=== PATIENT | male | born 1950 | race Caucasian/White ===

== ENCOUNTER → 2017-04-04 | Outpatient (CLI) | payer OTHER, MEDICARE ==
[~2017-04-04] MED LIST: ASPCH81X PO; CIPR-255 PO; FLUT0.0529 NAE; LEVO88TA PO; MULT-513 PO; SAW PALMETTO PO; SIMV20TA2 PO; SULF-183 PO; VITA400C15 PO
[2017-04-04 09:42] LABS: ALT/SGPT 39 U/L (12-78); AST/SGOT 34 U/L (15-37)
[2017-04-04 09:53] LABS: BLOOD UREA NITROGEN 22 mg/dl (7-18); BUN/CREATININE RATIO 17.2 (10-20); CALCIUM 8.3 mg/dl (8.5-10.1); CARBON DIOXIDE 31 mmol/L (21-32); CHLORIDE 110 mmol/L (98-107); GLUCOSE 84 mg/dl (70-99); POTASSIUM 4.5 mmol/L (3.5-5.1); SODIUM 144 mmol/L (136-145)
[2017-04-04 10:04] LABS: CHOLESTEROL 133 mg/dl (0-200); CHOLESTEROL/HDL RATIO 2.7; HDL CHOLESTEROL 49 mg/dl; LDL CHOLESTEROL CALCULATED 64 mg/dl; TRIGLYCERIDES 101 mg/dl (0-150); VERY LOW DENSITY LIPOPROT CALC 20 mg/dl
== END | disposition home or self-care (01) ==
LOC: C.LAB 08:10
PROVIDERS: ATTEND Internal Medicine
DX: E78.5 Hyperlipidemia, unspecified (principal); R68.82 Decreased libido; E03.9 Hypothyroidism, unspecified

== ENCOUNTER → 2017-05-17 | Outpatient (CLI) | payer OTHER, MEDICARE ==
--- NOTE | 2017-05-27 08:08 | CODING QUERY MEDICAL NECESSITY ---
CQSUPPORTING DIAGNOSIS NEEDED A supporting diagnosis is required for the test/procedure performed on this patient in order for us to be reimbursed by the patient's insurance. Please provide a supporting diagnosis for the following test/procedure listed below next to the test name along with your signature. *If there is no additional diagnosis for this patient that would support the following test/procedure please document that below next to the test/procedure. Test(s)/Procedure(s) that require a supporting diagnosis: DOS 05/17/17 PROSTATE SPECIFIC TEST Provider Signature: Date: Thank you Nicole Hernandez [employer] Information Management Once completed, please kindly fax back to [phone] For questions please call [phone]
== END | disposition home or self-care (01) ==
LOC: C.LAB 07:40
PROVIDERS: ATTEND Urology
DX: L72.0 Epidermal cyst (principal); R97.20 Elevated prostate specific antigen [PSA]; N40.1 Benign prostatic hyperplasia with lower urinary tract symptoms

== ENCOUNTER → 2017-10-13 | Outpatient (CLI) | payer OTHER, MEDICARE ==
[2017-10-13 11:07] LABS: ALT/SGPT 40 U/L (12-78); AST/SGOT 35 U/L (15-37); BLOOD UREA NITROGEN 18 mg/dl (7-18); BUN/CREATININE RATIO 16.4 (10-20); CALCIUM 8.7 mg/dl (8.5-10.1); CARBON DIOXIDE 28 mmol/L (21-32); CHLORIDE 105 mmol/L (98-107); CREATININE 1.12 mg/dl (0.60-1.40); GLUCOSE 84 mg/dl (70-99); SODIUM 140 mmol/L (136-145)
[2017-10-13 11:17] LABS: CHOLESTEROL 132 mg/dl (0-200); CHOLESTEROL/HDL RATIO 2.1; HDL CHOLESTEROL 62 mg/dl; LDL CHOLESTEROL CALCULATED 49 mg/dl; TRIGLYCERIDES 104 mg/dl (0-150); VERY LOW DENSITY LIPOPROT CALC 21 mg/dl
== END | disposition home or self-care (01) ==
LOC: C.LAB 09:20
PROVIDERS: ATTEND Internal Medicine
DX: E78.5 Hyperlipidemia, unspecified (principal); E03.9 Hypothyroidism, unspecified

== ENCOUNTER 2017-12-23 14:36 | Emergency (ER) | payer OTHER, MEDICARE ==
[~2017-12-23] VITALS: Ht 177.8 cm; Wt 74.5 kg
[2017-12-23 14:39] VITALS: TEMP 36.4
[2017-12-23 15:30] VITALS: O2SAT 97; Ht 177.8 cm; Wt 74.5 kg
--- NOTE | 2017-12-23 15:30 | DIAGNOSTIC IMAGING REPORT ---
CHEST ONE VIEW PORTABLE CLINICAL HISTORY: 67 years-old Male presenting with EVALUATE RESPIRATORY DISTRESS.DYSPNEA. TECHNIQUE: Portable upright AP view of the chest was obtained. COMPARISON: None. FINDINGS: Cardiomediastinal silhouette normal. Lungs and pleural spaces clear. Osseous structures normal. Upper abdomen normal. IMPRESSION: 1. No acute cardiopulmonary disease. Electronically signed by: Cheng Walls M.D. 12/23/2017 3:29 PM Dictated Date/Time: 12/23/2017 3:28 PM
[2017-12-23 15:51] LABS: BASO % 0.6 %; BASO ABS # 0.04 K/uL (0-0.2); EOS % 4.5 %; EOS ABS # 0.31 K/uL (0-0.5); HEMATOCRIT 42.1 % (42-52); HEMOGLOBIN 14.3 g/dL (14.0-18.0); IG# 0.02 K/uL (0.00-0.02); LYMPH % 15.2 %; LYMPH ABS # 1.04 K/uL (1.2-3.4); MEAN CELL VOLUME 94.4 fL (80-100); MEAN CORPUSCULAR HEMOGLOBIN 32.1 pg (25-34); MEAN PLATELET VOLUME 10.6 fL (7.4-10.4); MONO % 6.1 %; MONO ABS # 0.42 K/uL (0.11-0.59); NEUT % 73.3 %; NEUT ABS # 5.02 K/uL (1.4-6.5); PLATELET COUNT 158 K/uL (130-400); RED CELL DISTRIBUTION WIDTH CV 13.1 % (11.5-14.5); RED CELL DISTRIBUTION WIDTH SD 44.7 fL (36.4-46.3); WHITE BLOOD COUNT 6.85 K/uL (4.8-10.8)
[2017-12-23 16:00] LABS: PTT PATIENT 23.5 SECONDS (21.0-31.0)
--- NOTE | 2017-12-23 16:06 | EMERGENCY ROOM VISIT NOTE ---
History Report prepared by Eva: Starr Villa Under the Supervision of: Dr. Stas Calderon D.O. First contact with patient: 15:08 Chief Complaint: CARDIAC ASSESSMENT Stated Complaint: AFIB- SENT Nursing Triage Summary: Pt sent by [facility], was there for cataract surgery and was found to be in a.fib. Denies hx of a.fib. Pt states, "My pulse feels higher than it usually does." Denies sob, cp, dizziness/lightheadedness. History of Present Illness The patient is a 67 year old male who presents to the Emergency Room with complaints of an episode of atrial fibrillation beginning prior to arrival. The patient was at [facility] for cataract surgery when he was found to be in atrial fibrillation. The patient states that now that he is aware he is in atrial fibrillation, he can feel his "heart rate is higher than it is normally". He reports working out relatively regularity. He denies any shortness of breath, chest pain, dizziness, pain or swelling in his legs. The patient states he drinks occasionally but he denies any tobacco use. The patient has a history of BPH. Source of History: patient Onset: prior to arrival Position: other (generalized) Quality: other (a fib) Timing: other (episode) Associated Symptoms: No chest pain, No SOB Review of Systems See HPI for pertinent positives & negatives. A total of 10 systems reviewed and were otherwise negative. Past Medical & Surgical Medical Problems: (1) Enlarged prostate (2) Hernia repair (3) Prostatitis Family History Patient reports no known family medical history. Social History Smoking Status: Never Smoker Alcohol Use: occasionally Marital Status: Housing Status: lives with significant other Occupation Status: employed Current/Historical Medications Scheduled Alfuzosin Hcl (Uroxatral), 1 TAB PO DAILY Finasteride (Proscar), 1 TAB PO DAILY Levothyroxine Sodium (Synthroid), 88 MCG PO DAILY Metoprolol Succ (Toprol Xl) (Toprol-Xl), 25 MG PO DAILY Simvastatin (Zocor), 20 MG PO QPM Allergies Coded Allergies: No Known Allergies (Unverified , 12/23/17) Physical Exam Vital Signs Date Time Temp Pulse Resp B/P (MAP) Pulse Ox O2 Delivery O2 Flow Rate FiO2 12/23/17 17:31 77 20 104/74 98 12/23/17 16:33 60 12/23/17 15:30 97 Room Air 12/23/17 15:30 97 Room Air 12/23/17 14:39 36.4 72 18 127/71 95 Room Air Physical Exam GENERAL: Patient is awake, alert, and in no acute distress. Patient is resting comfortably and showing no signs of anxiety EYES: The conjunctivae are clear. The pupils are round and reactive. EARS, NOSE, MOUTH AND THROAT: The nose is without any evidence of any deformity. Mucous membranes are moist tongue is midline NECK: The neck is nontender and supple. RESPIRATORY: Normal respiratory effort is noted there is no evidence of wheezing rhonchi or rales CARDIOVASCULAR: Irregular rhythm, no definite murmur noted. GASTROINTESTINAL: The abdomen is soft. Bowel sounds are present in all quadrants. Abdomen is nontender MUSCULOSKELETAL/EXTREMITIES: There is no evidence of gross deformity full range of motion is noted in the hips and shoulders SKIN: There is no obvious evidence of any rash. There are no petechiae, pallor or cyanosis noted. NEUROLOGIC: Patient is awake alert and oriented x3 Medical Decision & Procedures ER Provider Diagnostic Interpretation: Radiology results as stated below per my review and radiologist interpretation: CHEST ONE VIEW PORTABLE FINDINGS: Cardiomediastinal silhouette normal. Lungs and pleural spaces clear. Osseous structures normal. Upper abdomen normal. IMPRESSION: 1. No acute cardiopulmonary disease. Electronically signed by: Cheng Walls M.D. Laboratory Results 12/23/17 15:36 Red Blood Count 4.46, Mean Corpuscular Volume 94.4, Mean Corpuscular Hemoglobin 32.1, Mean Corpuscular Hemoglobin Concent 34.0, Mean Platelet Volume 10.6, Neutrophils (%) (Auto) 73.3, Lymphocytes (%) (Auto) 15.2, Monocytes (%) (Auto) 6.1, Eosinophils (%) (Auto) 4.5, Basophils (%) (Auto) 0.6, Neutrophils # (Auto) 5.02, Lymphocytes # (Auto) 1.04, Monocytes # (Auto) 0.42, Eosinophils # (Auto) 0.31, Basophils # (Auto) 0.04 12/23/17 15:36 Test 12/23/17 15:36 White Blood Count 6.85 K/uL (4.8-10.8) Red Blood Count 4.46 M/uL (4.7-6.1) Hemoglobin 14.3 g/dL (14.0-18.0) Hematocrit 42.1 % (42-52) Mean Corpuscular Volume 94.4 fL (80-100) Mean Corpuscular Hemoglobin 32.1 pg (25-34) Mean Corpuscular Hemoglobin Concent 34.0 g/dl (32-36) Platelet Count 158 K/uL (130-400) Mean Platelet Volume 10.6 fL (7.4-10.4) Neutrophils (%) (Auto) 73.3 % Lymphocytes (%) (Auto) 15.2 % Monocytes (%) (Auto) 6.1 % Eosinophils (%) (Auto) 4.5 % Basophils (%) (Auto) 0.6 % Neutrophils # (Auto) 5.02 K/uL (1.4-6.5) Lymphocytes # (Auto) 1.04 K/uL (1.2-3.4) Monocytes # (Auto) 0.42 K/uL (0.11-0.59) Eosinophils # (Auto) 0.31 K/uL (0-0.5) Basophils # (Auto) 0.04 K/uL (0-0.2) RDW Standard Deviation 44.7 fL (36.4-46.3) RDW Coefficient of Variation 13.1 % (11.5-14.5) Immature Granulocyte % (Auto) 0.3 % Immature Granulocyte # (Auto) 0.02 K/uL (0.00-0.02) Prothrombin Time 10.7 SECONDS (9.0-12.0) Prothromb Time International Ratio 1.0 (0.9-1.1) Activated Partial Thromboplast Time 23.5 SECONDS (21.0-31.0) Partial Thromboplastin Ratio 0.9 Anion Gap 4.0 mmol/L (3-11) Est Creatinine Clear Calc Drug Dose 62.4 ml/min Estimated GFR () 73.8 Estimated GFR (Non- 63.7 BUN/Creatinine Ratio 16.2 (10-20) Calcium Level 8.5 mg/dl (8.5-10.1) Magnesium Level 2.2 mg/dl (1.8-2.4) Total Bilirubin 0.6 mg/dl (0.2-1) Aspartate Amino Transf (AST/SGOT) 33 U/L (15-37) Alanine Aminotransferase (ALT/SGPT) 37 U/L (12-78) Alkaline Phosphatase 80 U/L (45-117) Total Creatine Kinase 159 U/L (39-308) Creatine Kinase MB 5.2 ng/ml (0.5-3.6) Creatine Kinase MB Ratio 3.3 (0-3.0) Troponin I < 0.015 ng/ml (0-0.045) Total Protein 6.2 gm/dl (6.4-8.2) Albumin 3.5 gm/dl (3.4-5.0) Globulin 2.7 gm/dl (2.5-4.0) Albumin/Globulin Ratio 1.3 (0.9-2) Thyroid Stimulating Hormone (TSH) 3.040 uIu/ml (0.300-4.500) Laboratory results per my review. Medications Administered Medications (Trade) Dose Ordered Sig/Ellie Route Start Time Stop Time Status Last Admin Dose Admin Metoprolol Succinate (Toprol Xl Tab) 25 mg NOW STAT PO 12/23/17 16:44 12/23/17 16:46 DC 12/23/17 17:25 25 MG ECG Indication: palpitations Rate (beats per minute): 88 Rhythm: atrial fibrillation Findings: ST depression (Inferior), no ectopy Comparison ECG Date: 09/06/11 Change: changes new. EKG interpreted by me. ED Course 1510: The patient was evaluated in room C2B. A complete history and physical examination were performed. 1638: I updated the patient on his test results. 1642: I discussed the patient's case with Dr. Marks-Cardiology. He will follow up with patient as an outpatient. He recommended starting the patient on a beta octavia. 1644: Ordered Metoprolol Succinate 25 mg PO. 1652: I updated the patient on the treatment plan. 1658: Upon reevaluation, the patient is resting comfortably. I discussed the results and treatment plan with him. He verbalized agreement of the treatment plan. The patient was discharged home. Medical Decision Differential diagnosis: Etiologies such as cardiac ischemia, aortic dissection, pulmonary embolism, pneumonia, pneumothorax, musculoskeletal, infections, pericarditis, myocarditis , esophageal rupture, gastrointestinal, as well as others were entertained. CHADVASC score is 1 Nursing notes reviewed. The patient is a 67-year-old male who presented to the emergency department from [facility] for atrial fibrillation. The patient was asymptomatic for the most part but was found to be in atrial fibrillation. He was not found have a rapid ventricular rate. The patient was started on Toprol- XL need emergency department. I discussed the patient's laboratory and radiographic studies with him. I also discussed his CHADVASC score with him. I discussed his case with the on-call [facility] name plate stamping machine operator. I do not feel the patient requires anticoagulation at this time. He was started on a beta octavia. He was encouraged to follow-up with the cardiology group as well as his primary care physician as soon as possible. Otherwise she was encouraged to return to the emergency department immediately if symptoms change worsen or the need arises. Medication Reconcilliation Current Medication List: was personally reviewed by me Blood Pressure Screening Patient's blood pressure: Normal blood pressure Consults Time Called: 1634 Consulting Physician: Dr. Alexandre Returned Call: 1642 I discussed the patient's case with Dr. Alexandre. He will follow up with patient as an outpatient. He recommended starting the patient on a beta octavia. Impression Primary Impression: New onset atrial fibrillation Scribe Attestation The scribe's documentation has been prepared under my direction and personally reviewed by me in its entirety. I confirm that the note above accurately reflects all work, treatment, procedures, and medical decision making performed by me. Departure Information Dispostion Home / Self-Care Prescriptions Metoprolol Succ (Toprol Xl) (Toprol-Xl) 25 Mg Tabcr 25 MG PO DAILY, #30 TAB Prov: Stas Calderon, 12/23/17 Referrals Stas Pitts M.D. (PCP) Forms IMPORTANT VISIT INFORMATION Patient Instructions Atrial Fibrillation, My [facility] Additional Instructions Continue all medications as prescribed. I would recommend starting a baby aspirin every morning. Call your primary care physician as well as the name plate stamping machine operator to schedule follow-up point for further testing. Return to the emergency department immediately if symptoms change worsen or the need arises.
[2017-12-23] MEDS ORDERED: FINA5TAB PO (16:10)
[2017-12-23] MEDS ORDERED: ALFU10TA2 PO (16:10)
[2017-12-23 16:20] LABS: ALBUMIN 3.5 gm/dl (3.4-5.0); ALT/SGPT 37 U/L (12-78); AST/SGOT 33 U/L (15-37); BLOOD UREA NITROGEN 19 mg/dl (7-18); CALCIUM 8.5 mg/dl (8.5-10.1); CARBON DIOXIDE 29 mmol/L (21-32); CREATININE 1.17 mg/dl (0.60-1.40); GLUCOSE 125 mg/dl (70-99); POTASSIUM 4.1 mmol/L (3.5-5.1); SODIUM 140 mmol/L (136-145)
[2017-12-23 16:30] LABS: ALKALINE PHOSPHATASE 80 U/L (45-117); CKMB 5.2 ng/ml (0.5-3.6); TOTAL PROTEIN 6.2 gm/dl (6.4-8.2)
[2017-12-23] MEDS ORDERED: METOPROLOL SUCC 50MG EXT REL TAB PO STA (16:44)
[2017-12-23] MEDS ORDERED: METO25TA3 PO (16:47)
[2017-12-23 17:31] VITALS: BP 104/74; PULSE 77; O2SAT 98
== END 2017-12-23 17:33 | disposition home or self-care (01) ==
LOC: C.EDB 14:37 → C.EDC 17:33
DX: I48.91 Unspecified atrial fibrillation (principal); N40.0 Benign prostatic hyperplasia without lower urinary tract symptoms

== ENCOUNTER → 2018-03-28 | Outpatient (CLI) | payer OTHER, MEDICARE ==
[~2018-03-28] MED LIST changes: +ALFU10TA2 PO; -ASPCH81X PO; -CIPR-255 PO; +FINA5TAB PO; -FLUT0.0529 NAE; +METO25TA3 PO; -MULT-513 PO; -SAW PALMETTO PO; -SULF-183 PO; -VITA400C15 PO
== END | disposition home or self-care (01) ==
LOC: C.LAB 07:55
PROVIDERS: ATTEND Urology
DX: R97.20 Elevated prostate specific antigen [PSA] (principal)

== ENCOUNTER → 2018-07-10 | Outpatient (CLI) | payer OTHER, MEDICARE ==
[~2018-07-10] MED LIST changes: -METO25TA3 PO
--- NOTE | 2018-07-10 16:11 | DIAGNOSTIC IMAGING REPORT ---
KUB CLINICAL HISTORY: E78.5 [id number] COMPARISON STUDY: CT scan dated 04/12/2016 FINDINGS: There is no pathologic bowel dilatation. The renal shadows are largely obscured overlying bowel gas and fecal material. No definite calculi are visualized. There is a tiny right pelvic basin calcifications statistically representing a phlebolith. IMPRESSION: No evidence of pathologic bowel dilatation. Electronically signed by: Suraj Price M.D. 07/10/2018 4:09 PM Dictated Date/Time: 07/10/2018 4:08 PM
[2018-07-10 17:15] LABS: BASO % 0.7 %; BASO ABS # 0.06 K/uL (0-0.2); EOS ABS # 0.45 K/uL (0-0.5); HEMATOCRIT 38.5 % (42-52); HEMOGLOBIN 12.8 g/dL (14.0-18.0); IG# 0.02 K/uL (0.00-0.02); LYMPH % 12.5 %; LYMPH ABS # 1.13 K/uL (1.2-3.4); MEAN CELL VOLUME 94.6 fL (80-100); MEAN CORPUSCULAR HEMOGLOBIN 31.4 pg (25-34); MEAN CORPUSCULAR HGB CONC 33.2 g/dl (32-36); MEAN PLATELET VOLUME 11.7 fL (7.4-10.4); MONO % 9.9 %; NEUT % 71.7 %; NEUT ABS # 6.51 K/uL (1.4-6.5); PLATELET COUNT 167 K/uL (130-400); RED CELL DISTRIBUTION WIDTH CV 12.7 % (11.5-14.5); RED CELL DISTRIBUTION WIDTH SD 43.7 fL (36.4-46.3); WHITE BLOOD COUNT 9.07 K/uL (4.8-10.8)
[2018-07-10 18:00] LABS: ALBUMIN 3.4 gm/dl (3.4-5.0); ALKALINE PHOSPHATASE 87 U/L (45-117); ALT/SGPT 32 U/L (12-78); AST/SGOT 30 U/L (15-37); BLOOD UREA NITROGEN 21 mg/dl (7-18); CALCIUM 8.4 mg/dl (8.5-10.1); CARBON DIOXIDE 27 mmol/L (21-32); CHOLESTEROL 104 mg/dl (0-200); CREATININE 1.11 mg/dl (0.60-1.40); GLUCOSE 80 mg/dl (70-99); LDL CHOLESTEROL CALCULATED 41 mg/dl; POTASSIUM 3.9 mmol/L (3.5-5.1); SODIUM 141 mmol/L (136-145); TOTAL PROTEIN 6.6 gm/dl (6.4-8.2)
== END | disposition home or self-care (01) ==
LOC: C.RAD1850 15:55
PROVIDERS: ATTEND Internal Medicine
DX: R14.0 Abdominal distension (gaseous) (principal); R10.84 Generalized abdominal pain; E03.9 Hypothyroidism, unspecified; E78.5 Hyperlipidemia, unspecified

== ENCOUNTER 2024-09-14 08:22 | Observation (INO) ==
--- NOTE | 2024-09-06 15:11 | Anesthesiology Consultation ---
Date of Service September 06, 2024 Assessment & Plan (1) Encounter for pre-operative examination: - Infectious disease screening: Per assessment on 09/06/24- No known recent infectious disease contacts or current infectious disease symptoms. - Cardiology visit (11/24/23): "Paroxysmal atrial fibrillation.. He has a few episodes of year of what is likely atrial fibrillation. His does record some high heart rates at times, but this may symptoms the due to the way in which the heart rate is monitored. While he had some atrial fibrillation in the morning 1 day his heart rate was only in the 70s to 80s. No symptoms. Still infrequent episodes overall. We did discuss anticoagulation and based on his age, he would be in a category of patients advised to undergo systemic anticoagulation starting this may. I think it would be prudent to start anticoagulation at this time. I recommended starting Xarelto. He is going to discuss this with his and let me know his decision.. he has a resting bradycardia. No symptoms. Still elevated heart rates with exercise. Still exercising vigorously.. Follow Up: 1 Year" > Per 06/2024 [facility] PCP wellness visit, risks/benefits of anticoagulation reviewed with patient and patient has decided to not start anticoagulation at this time. Cardiology aware. Case reviewed with Dr. Richards. Patient okay to proceed without further cardiac evaluation and/or testing from his perspective. Chart Review Chart Review: Acceptable Risk for Surgery (pending evaluation DOS) and Patient NOT seen in Pre Admission Testing History Surgery Operation Date: 09/14/24 07:15 Proposed Procedures p TURP (Transurethral Resection of Prostate) - Roe Cortez MD Height/Weight Height: 5 ft 10 in Weight: 65.771 kg Allergies Allergy/AdvReac Type Severity Reaction Status Date / Time adhesive Allergy Mild skin Verified 09/06/24 13:41 irritation latex Allergy Mild Rash Verified 09/06/24 13:41 ragweed pollen Allergy Mild runny nose Verified 09/06/24 13:41 and cough No Known Drug Allergies Allergy Verified 09/06/24 13:41 Medications Home Medications Medication Instructions Recorded Confirmed Last Taken albuterol sulfate 90 mcg/actuation 2 puffs inhalation Q4H PRN 07/22/19 09/06/24 Unknown aerosol inhaler shortness of breath #1 g multivitamin 1 tab PO QAM 07/22/19 09/06/24 Unknown metoprolol tartrate 25 mg tablet See Rx Instructions .Route 12/20/19 09/06/24 Unknown .COMPLEX PRN palpitations #30 tabs vitamin E 268 mg (400 unit) capsule 400 unit PO QAM 01/26/20 09/06/24 Unknown aspirin 81 mg capsule 81 mg PO QAM 04/02/23 09/06/24 Unknown ferrous sulfate 134 mg (27 mg 134 mg PO Q2D 04/02/23 09/06/24 Unknown iron) tablet simvastatin 20 mg tablet 20 mg PO QAM #90 tabs 12/08/23 09/06/24 Unknown sildenafil 100 mg tablet 100 mg PO DAILY PRN sexual 08/10/24 09/06/24 Unknown activity #20 tabs tamsulosin 0.4 mg capsule 0.4 mg PO HS #30 caps 08/10/24 09/06/24 Unknown levothyroxine 100 mcg tablet 100 mcg PO QAM #90 tabs 08/25/24 09/06/24 Unknown dutasteride 0.5 mg capsule 0.5 mg PO HS 09/06/24 09/06/24 Unknown Past Medical History Medical History Actinic keratosis Arthritis BPH (benign prostatic hyperplasia) Bradycardia Chronic, "lifetime runner" History of basal cell carcinoma RLE History of COVID-19 07/2021- asymptomatic Hx of bronchitis Reason for inhaler PRN, no noted recent bronchitis/issues Hyperlipidemia Hypothyroidism Low ferritin Paroxysmal atrial fibrillation Metoprolol PRN symptomatic Follows with [facility] cardiology Seasonal allergies Past Family History Family History Father Myocardial infarction BPH (benign prostatic hyperplasia) Heart disease Mother Carotid artery stenosis Stroke Family/Other Heart disease Breast cancer Half sister Denies family history of Ovarian cancer Prostate cancer Colorectal cancer Past Surgical History Surgical History History of cataract surgery R/L History of colonoscopy History of cystoscopy History of herniorrhaphy [address] Leung 1998 Recurrent LIH repair with plug Dr. White [address] Velez History of prostate surgery Rezum x2 History of tonsillectomy and adenoidectomy History of tooth extraction [place] teeth removed Social History Smoking Status: Never smoker Do You Dip or Chew Tobacco: No Hx Alcohol Use: Yes Alcohol type: beer, wine and hard liquor alcohol intake frequency: a few times a week Hx Substance Use: No substance use type: does not use Lab Results Anesthesia Preop Results Results Anesthesia Widget: WBC 4.55 K/ul (4.8-10.8) L 08/27/24 Hgb 12.7 g/dl (14.0-18.0) L 08/27/24 Hct 37.7 % (42.0-52.0) L 08/27/24 Plt 177 K/uL (130-400) 08/27/24 Na 139 mmol/L (136-145) 08/27/24 K 4.1 mmol/L (3.5-5.1) 08/27/24 Cl 105 mmol/L (98-107) 08/27/24 CO2 30 mmol/L (21-32) 08/27/24 BUN 18 mg/dl (6-23) 08/27/24 Creat 1.14 mg/dl (0.6-1.4) 08/27/24 Glucose Level 91 mg/dl (70-99(Fasting)) 08/27/24 Testing Laboratory Results Urine culture (08/27/24): no growth Electrocardiogram Date: 08/27/24 Marked sinus bradycardia at 43bpm. No significant change compared to 03/27/2023 per solid waste collector comparison. Chest X-Ray Date: 08/27/24 FINDINGS: Cardiomediastinal and hilar silhouettes are within normal limits. No pneumothorax, pleural effusion or airspace consolidation. Bones appear grossly intact. There is mild mid thoracic dextroscoliosis. IMPRESSION: No acute process. Other Testing Carotid doppler Date: 02/20/24 <50% B/L ICA stenosis. Antegrade flow bilateral vertebral arteries. Abdomen/Pelvis CT Date: 07/21/24 There is a small bulge/diastases involving the left lower anterior abdominal wall at the site of prior inguinal hernia repair. No recurrent or residual hernia identified on this exam. There is mild enhancement of the left ureteral wall. Correlation with urinalysis is recommended to exclude UTI. Chronic bladder outlet obstruction due to prostatomegaly.
[~2024-09-14 08:22] MED LIST changes: -ALFU10TA2 PO; +CIPROFLOXACIN / D5W 400 MG/200 ML BAG IV SCH; +DEXAMETHASONE SOD INJ 4 MG/ML VIAL ONE; -FINA5TAB PO; -LEVO88TA PO; +LIDOCAINE 2% 2 ML VIAL/AMP(20MG/ML) INFIL ONE; +LR 15ML/HR IV SCH; +MIDAZOLAM HCL 1 MG/ML 2ML VIAL ONE; +ONDANSETRON INJ 2 MG/ML 2 ML VIAL ONE; +PROPOFOL IV EMULSION 10 MG/ML 20 ML VIAL IV ONE; -SIMV20TA2 PO; +fentaNYL citrate PF 100 MCG/2 ML VIAL ONE
[2024-09-14] MEDS: LR 15ML/HR IV SCH (08:59)
[2024-09-14] MEDS ORDERED: fentaNYL citrate PF 100 MCG/2 ML VIAL IV PRN (09:35)
[2024-09-14] MEDS ORDERED: ePHEDrine sulfate 50 MG/ML AMP IV PRN (09:35)
[2024-09-14] MEDS ORDERED: ONDANSETRON INJ 2 MG/ML 2 ML VIAL IV PRN (09:35)
[2024-09-14] MEDS ORDERED: ATROPINE SULFATE 0.1 MG/ML 10ML SYR IV PRN (09:35)
--- NOTE | 2024-09-14 10:33 | History & Physical Report ---
Date of Service September 14, 2024 Assessment & Plan (1) Enlarged prostate with lower urinary tract symptoms (LUTS): Plan Significant, chronic voiding dysfunction secondary to a substantially enlarged prostate Plan for TURP today Risks, benefits, expectations reviewed at length If possible, will plan for discharge home after surgery History of Present Illness Primary Care Provider: Stas Pitts MD 74-year-old gentleman with longstanding voiding dysfunction presenting today for TURP to definitively treat Allergies Allergy/AdvReac Type Severity Reaction Status Date / Time adhesive Allergy Mild skin Verified 09/14/24 08:42 irritation latex Allergy Mild Rash Verified 09/14/24 08:42 ragweed pollen Allergy Mild runny nose Verified 09/14/24 08:42 and cough Home Medications Medication Instructions Recorded Confirmed Type albuterol sulfate 90 mcg/actuation 2 puffs inhalation Q4H PRN 07/22/19 09/13/24 History aerosol inhaler shortness of breath #1 g multivitamin 1 tab PO QAM 07/22/19 09/14/24 History metoprolol tartrate 25 mg tablet See Rx Instructions .Route 12/20/19 09/13/24 Rx .COMPLEX PRN palpitations #30 tabs vitamin E 268 mg (400 unit) capsule 400 unit PO QAM 01/26/20 09/14/24 History aspirin 81 mg capsule 81 mg PO QAM 04/02/23 09/14/24 History ferrous sulfate 134 mg (27 mg 134 mg PO Q2D 04/02/23 09/14/24 History iron) tablet simvastatin 20 mg tablet 20 mg PO QAM #90 tabs 12/08/23 09/14/24 Rx sildenafil 100 mg tablet 100 mg PO DAILY PRN sexual 08/10/24 09/13/24 Rx activity #20 tabs tamsulosin 0.4 mg capsule 0.4 mg PO HS #30 caps 08/10/24 09/14/24 Rx levothyroxine 100 mcg tablet 100 mcg PO QAM #90 tabs 08/25/24 09/14/24 Rx dutasteride 0.5 mg capsule 0.5 mg PO HS 09/06/24 09/14/24 History Past Med/Surg History Problem List Recurrent right inguinal hernia Recurrent left inguinal hernia Encounter for pre-operative examination Elevated PSA 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 Allergic rhinitis (Acute) Angioma (Acute) Decreased libido (Acute) Enlarged prostate with lower urinary tract symptoms (LUTS) (Acute) Seborrheic keratosis (Acute) Medical History Seasonal allergies Paroxysmal atrial fibrillation Metoprolol PRN symptomatic Follows with [facility] cardiology Hyperlipidemia Arthritis Low ferritin Bradycardia Chronic, "lifetime runner" History of COVID-19 07/2021- asymptomatic Actinic keratosis History of basal cell carcinoma RLE BPH (benign prostatic hyperplasia) Hypothyroidism Hx of bronchitis Reason for inhaler PRN, no noted recent bronchitis/issues Surgical History History of prostate surgery Rezum x2 History of cystoscopy History of colonoscopy History of herniorrhaphy [address] Leung 1998 Recurrent LIH repair with plug Dr. White [address] Velez [place] teeth removed History of tooth extraction History of tonsillectomy and adenoidectomy History of cataract surgery R/L Family History Father Myocardial infarction BPH (benign prostatic hyperplasia) Heart disease Mother Carotid artery stenosis Stroke Family/Other Heart disease Breast cancer Half sister Denies family history of Ovarian cancer Prostate cancer Colorectal cancer Social History Smoking Status: Never smoker Second Hand Exposure: No; Do You Dip or Chew Tobacco: No; Tobacco Cessation Education Requested by Patient: No Hx Alcohol Use: Yes Alcohol type: beer, wine and hard liquor Alcohol Intake Frequency Comment: one drink every other day Hx Substance Use: No Preferred Language: Azeri Communication Ability: Effective Visual Impairment: No Limitations Hearing Ability: Normal Wool Sampler Required: No Beliefs That Will Affect Care: None marital status: Current Living Situation: Spouse current occupational status: retired current occupation: director transition Other Information That Helps Us Care for You: No Feels Safe at Home: Yes Safety Concerns: Feels Safe At This Time Childhood Exposure to Second-Hand Smoke: Yes Diet: regular during the past year weight has: remained stable Dental Care, Regularly: Yes Physical Activity Frequency: 3-4 Times per Week Seatbelt Use: always Sunscreen Use: Yes Assistive Devices: Glasses and Hearing Aid - Bilateral Physical Exam Constitutional: well developed and well nourished Neck: neck nontender Respiratory: normal respiratory effort; no respiratory distress and does not use accessory muscles Cardiovascular: Rate/Rhythm: regular rate Vessels: radial pulses present Extremities: no edema Gastrointestinal (Abdomen): Inspection/Auscultation: abdomen normal to inspection Percussion/Palpation: abdomen soft; abdomen nontender and no guarding Musculoskeletal: Head/Neck/Chest: normocephalic and head atraumatic Extremities: extremities normal to inspection Skin: no rashes and no lesions Trauma: no evidence of skin trauma Neurologic: awake; not obtunded Speech / Cognition: normal speech Motor/Sensory: no tremor Psychiatric: Orientation: alert and oriented x 3 Genitourinary: no CVA tenderness Lymphatic: no lymphadenopathy Results & Data Vital Signs (Past 12 Hours) Vital Signs Pulse Resp BP Pulse Ox O2 Del Method 09/14/24 08:46 51 L 15 125/71 100 Room Air
[2024-09-14] MEDS: CIPROFLOXACIN / D5W 400 MG/200 ML BAG IV SCH ×2 (10:48→22:54)
[2024-09-14] MEDS ORDERED: ePHEDrine sulfate 50 MG/5 ML SYR ONE (11:22)
--- NOTE | 2024-09-14 12:47 | Anesthesiology Progress Note ---
Date of Service September 14, 2024 Anesthesia Post Procedure Vital Signs Vital Signs: Pulse Resp BP Pulse Ox O2 Del Method 09/14/24 08:46 51 L 15 125/71 100 Room Air Transfer of Care Handoff Completed per policy Notes Mental Status: alert / awake / arousable Patient Amnestic to Procedure: Yes Nausea / Vomiting: adequately controlled Pain: adequately controlled Airway Patency, RR, SpO2: stable & adequate BP & HR: stable & adequate Hydration State: stable & adequate Anesthetic Complications: no major complications apparent and Pt Satisfied with anesthetic care
--- NOTE | 2024-09-14 12:50 | Operative Report ---
PG Post Operative Report Pre & Post Diagnosis Operation Date: 09/14/24 09:50 Pre-Op Diagnosis: Benign Prostatic Hyperplasia with Lower Urinary Tract Symptoms Post-Op Diagnosis: Benign Prostatic Hyperplasia with Lower Urinary Tract Symptoms I identified the patient and participated in the time-out.: Yes Procedure Operation Date: 09/14/24 09:50 Actual Procedures p Transurethral Resection of Prostate(Not Applicable) - Roe Cortez MD Surgeon Roe Cortez MD Import Specialist none Estimated Blood Loss 25 Findings Consistent with Post-Op Diagnosis Specimens Prostate chips for routine pathology Description of Procedure The patient was identified in the preoperative holding area, appropriate informed consents were reviewed and completed and the patient was transferred to the operative suite. Upon arrival, appropriate antibiotics and anesthesia were administered and the patient was placed in dorsal lithotomy position and prepped and draped in sterile fashion. To begin the case I passed a 27 Lao resectoscope with 30 degree lens and visual loading machine operator peer inspection revealed a healthy-appearing urethra and an extremely large prostate with lateral lobe obstruction and significant intravesical intrusion grading of median lobe. The bladder was heavily trabeculated and visualization of the bladder was somewhat difficult because of the size of the prostate. I began by identifying the sulcus on the lateral aspects of the median lobe. I incised here at 5 and 7:00. I then utilized a loop electrode to resect the intravesical median lobe. I proceeded to resect the left lateral lobe followed by the right lateral lobe. I had to resect the midportion of the prostate and then a substantial amount of tissue at the apex of the prostate. He had significant anterior redundant tissue. Overall, the appearance of his prostate was improved drastically throughout the case. I did come down to the capsule on the right lateral aspect of the prostate. This was slightly more anterior than the midportion of the prostate. Hemostasis in this area was excellent. The remainder of the prostate was healthy in appearance. The bladder neck was widely patent. I never truly visualized ureteral orifices given the trabeculation of the bladder and the size of the prostate. I do not feel that I likely encroached upon them significantly. After confirming excellent hemostasis I withdrew the scope. I placed a Beebe catheter and initially urine was quite clear. It then became relatively bloody. I irrigated the catheter and exchanged it for a three-way Beebe catheter. Traction was held on the 30 cc balloon for approximately 3 minutes and continuous bladder irrigation initiated. The urine returned to a crystal-clear color. I elected not to perform any other procedures and concluded the case. He was reversed of anesthesia and taken the recovery room in stable condition. I attest to the content of the Intraoperative Record and any orders documented therein. Any exceptions are noted below.
--- NOTE | 2024-09-14 13:13 | Anesthesiology Progress Note ---
Date of Service September 14, 2024 Anesthesia Post Procedure Vital Signs Vital Signs: Temp Pulse Pulse Resp BP BP Pulse Ox 09/14/24 13:05 66 17 106/64 96 09/14/24 12:55 60 16 110/69 100 09/14/24 12:45 11 L 115/65 100 09/14/24 12:36 36.0 C L 12 120/62 99 09/14/24 08:46 51 L 15 125/71 100 O2 Del Method O2 Flow Rate 09/14/24 13:05 Room Air 09/14/24 12:55 Room Air 09/14/24 12:45 Nasal Cannula 6 09/14/24 12:36 Nasal Cannula 9 09/14/24 08:46 Room Air Transfer of Care Handoff Completed per policy Notes Mental Status: alert / awake / arousable Patient Amnestic to Procedure: Yes Nausea / Vomiting: adequately controlled Pain: adequately controlled Airway Patency, RR, SpO2: stable & adequate BP & HR: stable & adequate Hydration State: stable & adequate Anesthetic Complications: no major complications apparent and Pt Satisfied with anesthetic care
[2024-09-14 13:24] LABS: Hematocrit (blood only) 34.3 % (42.0-52.0); Hemoglobin 11.5 g/dl (14.0-18.0); Mean Corpuscular Hemoglobin 31.6 pg (25.0-34.0); Mean Corpuscular Hgb Conc 33.5 g/dL (32.0-36.0); Mean Corpuscular Volume 94.2 fL (80.0-100.0); Mean Platelet Volume 10.9 fL (9.4-12.4); Platelet Count 130 K/uL (130-400); RDW Coefficient of Variation 12.1 % (11.5-14.5); RDW Standard Deviation 42.4 fL (36.4-46.3); Red Blood Count 3.64 M/uL (4.70-6.10); White Blood Count 4.48 K/ul (4.8-10.8)
[2024-09-14 13:32] LABS: Calcium 7.6 mg/dl (8.6-10.3); Creatinine Clr Calc Pharmacy 55.5 ml/min; Potassium 4.5 mmol/L (3.5-5.1)
[2024-09-14] MEDS ORDERED: METOPROLOL TARTRATE 25 MG TAB PO PRN (14:30)
[2024-09-14] MEDS ORDERED: ALBUTEROL HFA 8 GM INHALER INH PRN (14:30)
[2024-09-14] MEDS: FERROUS SULFATE 325 MG TAB PO SCH (15:13)
[2024-09-14] MEDS: SODIUM CHLORIDE 0.9% 500 ML IV SCH (15:16)
[2024-09-14 19:49] VITALS: PULSE 54; RESP 18
[2024-09-14] MEDS: FINASTERIDE 5 MG TAB PO SCH (20:05)
[2024-09-15] MEDS: LEVOTHYROXINE SODIUM 100 MCG TABLET PO SCH (05:37)
[2024-09-15 07:32] LABS: Hematocrit (blood only) 33.3 % (42.0-52.0); Hemoglobin 11.4 g/dl (14.0-18.0); Mean Corpuscular Hemoglobin 31.6 pg (25.0-34.0); Mean Corpuscular Hgb Conc 34.2 g/dL (32.0-36.0); Mean Corpuscular Volume 92.2 fL (80.0-100.0); Mean Platelet Volume 11.3 fL (9.4-12.4); Platelet Count 155 K/uL (130-400); RDW Standard Deviation 41.1 fL (36.4-46.3); Red Blood Count 3.61 M/uL (4.70-6.10); White Blood Count 11.64 K/ul (4.8-10.8)
[2024-09-15 07:46] LABS: BUN Creatinine Ratio 12.2 (10-20); Calcium 8.1 mg/dl (8.6-10.3); Creatinine Clr Calc Pharmacy 49.6 ml/min; Potassium 3.9 mmol/L (3.5-5.1)
[2024-09-15 07:49] VITALS: BP 120/70; TEMP 98.1; O2SAT 98
[2024-09-15] MEDS: MULTIVITAMIN TAB PO SCH (08:49)
[2024-09-15] MEDS: SIMVASTATIN 20 MG TAB PO SCH (08:49)
--- NOTE | 2024-09-15 09:33 | Urology Progress Note ---
Date of Service September 15, 2024 Assessment & Plan (1) Enlarged prostate with lower urinary tract symptoms (LUTS): Plan Significantly enlarged prostate status post TURP yesterday Plan for catheter removal this morning and discharge home Admission and Anticipated Discharge Date Admission Date: September 14, 2024 Subjective Did very well overnight CBI running slowly with clear urine throughout Hemoglobin stable Creatinine stable Plan for voiding trial this morning discharge home Results & Data Vital Signs (Past 12 Hours) Vital Signs Temp Pulse Resp BP Pulse Ox O2 Del Method 09/15/24 07:49 36.7 C 54 L 18 120/70 98 Room Air PG Care Time/CCT Total # of Minutes Spent Total Time Spent with Patient: Total time spent is greater than 50% in coordination of care (as documented) at patient's floor/unit and/or counseling patient: Coding Level of Care Code None Diagnoses Enlarged prostate with lower urinary tract symptoms (LUTS) N40.1
--- NOTE | 2024-09-15 16:24 | Discharge Summary ---
Date of Service September 15, 2024 Admission HPI Per Admitting Provider 74-year-old gentleman with longstanding voiding dysfunction presenting today for TURP to definitively treat Admission Exam Per Admitting Provider Constitutional: well developed and well nourished Neck: neck nontender Respiratory: normal respiratory effort; no respiratory distress and does not use accessory muscles Cardiovascular: Rate/Rhythm: regular rate Vessels: radial pulses present Extremities: no edema Gastrointestinal (Abdomen): Inspection/Auscultation: abdomen normal to inspection Percussion/Palpation: abdomen soft; abdomen nontender and no guarding Musculoskeletal: Head/Neck/Chest: normocephalic and head atraumatic Extremities: extremities normal to inspection Skin: no rashes and no lesions Trauma: no evidence of skin trauma Neurologic: awake; not obtunded Speech / Cognition: normal speech Motor/Sensory: no tremor Psychiatric: Orientation: alert and oriented x 3 Genitourinary: no CVA tenderness Lymphatic: no lymphadenopathy Principal Diagnosis BPH with lower urinary tract symptoms Discharge Exam Constitutional no acute distress Respiratory no respiratory distress and no labored breathing Musculoskeletal Head/Neck/Chest: normocephalic Skin no rashes, warm and dry Neurologic moves all extremities and awake Psychiatric A+Ox3, euthymic affect Discharge Data Allergies Allergy/AdvReac Type Severity Reaction Status Date / Time adhesive Allergy Mild skin Verified 09/14/24 08:42 irritation latex Allergy Mild Rash Verified 09/14/24 08:42 ragweed pollen Allergy Mild runny nose Verified 09/14/24 08:42 and cough Procedures Performed Operation Date: 09/14/24 09:50 Actual Procedures p Transurethral Resection of Prostate(Not Applicable) - Roe Cortez MD Hospital Course (1) Enlarged prostate with lower urinary tract symptoms (LUTS): Plan 74-year-old male admitted status post transurethral resection of the prostate with Dr. Cortez. Patient tolerated procedure well. No issues postoperatively. He remained afebrile and hemodynamically stable. Labs were appropriate. CBI was clamped on postop day #1. Urine remained clear off CBI. Beebe catheter was removed POD#1 and patient was able to void spontaneously. He reported minimal pain. Tolerated diet. Ambulated without issue. Patient was discharged home on postop day #1. He was in stable condition at time of d ischarge. Discharge instructions were reviewed, all questions were answered. Total Time Total Time Spent Total Time Spent (In Minutes): 15 Discharge Plan Discharge Items Patient Disposition: Home - Self-Care Reason For Visit: URINARY RETENTION Discharge Diagnosis: Urinary retention Activity: Per Instructions section Lifting: No more than 25 pounds Non-emergency contact: Surgeon and Urologist Call non-emergency contact if: you have any medication questions, your symptoms worsen, your pain is not controlled, your pain is worsening and you have a fever Follow-up/Referrals: Pro,Stas Mata MD [Primary Care Provider] - Roe Cortez MD [Physician] - Jenny Diaz CRNP [Nurse Practitioner] - 10/13/24 11:30 am ([address] [place] [address] [facility] Location) Diet: Regular Addtl Attending Provider Instructions: Please take all medications as prescribed and keep all follow-ups as scheduled. Please call our office at [phone] with any questions, concerns or need to reschedule appointments for any reason. We are happy to assist you. An antibiotic (Ciprofloxacin) has been sent to your pharmacy, please take as prescribed. You may resume aspirin in 1-2 days if urine remains clear to light pink. Tips for your recovery at home: Dont be alarmed by brownish or reddish blood or clots in your urine. This is a result of the procedure. This may occur off and on for weeks to months after the procedure but should continue to improve. Drink plenty of fluids during the day (enough to keep your urine very light colored). This will help keep a healthy flow of urine. Do not lift >25 lbs until your followup Avoid constipation. Please use a stool softener (Colace) for the first two weeks after your procedure When to call [facility] at [phone]: Your urine contains heavy blood clots or you are unable to urinate You are constantly leaking urine Fever of 101F or higher, chills, nausea, or vomiting Your pain is not relieved with medication Pending Studies at Discharge: Yes Stand-Alone Forms: My [facility] [employer] [facility], Smoking Cessation Medications and DC Order Prescriptions: Continued metoprolol tartrate 25 mg tablet See Rx Instructions .ROUTE .COMPLEX PRN (Reason: palpitations) Qty: 30 3RF Rx Instructions: Take 1/2 to 1 tablet by mouth every 8 hours as needed for A-Fib simvastatin 20 mg tablet 20 mg PO QAM Qty: 90 3RF tamsulosin 0.4 mg capsule 0.4 mg PO HS Qty: 30 3RF sildenafil 100 mg tablet 100 mg PO DAILY PRN (Reason: sexual activity) Qty: 20 11RF Rx Instructions: administer 30 minutes to 4 hours before activity levothyroxine 100 mcg tablet 100 mcg PO QAM Qty: 90 3RF ciprofloxacin HCl 500 mg tablet 500 mg PO BID 3 Days Qty: 6 0RF albuterol sulfate 90 mcg/actuation HFA aerosol inhaler 2 puffs inhalation Q4H PRN (Reason: shortness of breath) Qty: 1 multivitamin tablet 1 tab PO QAM vitamin E 400 unit Capsule 400 unit PO QAM ferrous sulfate 134 mg (27 mg iron) Tablet 134 mg PO Q2D aspirin 81 mg Capsule 81 mg PO QAM dutasteride 0.5 mg capsule 0.5 mg PO HS Discharge Orders: Discharge Order (Routine); Ordered 09/15/24 Ordered By: Sharon Pride Admission Data Admit Date/Time: 09/14/24 12:46 Attending Provider: Roe Cortez Admit Provider: Roe Cortez Primary Care Provider: Stas Pitts Other Interventions: Discharge Summary Assessment (RN) Last Done: 09/15/24 14:29 Coding Level of Care Code 76292 IN/OBS DISCH 30 MIN/LESS Diagnoses Enlarged prostate with lower urinary tract symptoms (LUTS) N40.1
== END 2024-09-15 14:54 | disposition home or self-care (01) ==
LOC: 3W 08:22 → ASU 08:22